=== PATIENT | female | born 1960 | race Caucasian/White ===

== ENCOUNTER 2020-03-31 15:26 | Emergency (ER) | payer OTHER, SELFPAY ==
--- NOTE | ~2020-03-31 | XR_ITS ---
EXAMINATION: XR foot LT min 3V DATE: 03/31/2020 16:10 INDICATION: Left foot pain. TECHNIQUE: 4 views of left foot were obtained. COMPARISON: None. FINDINGS: Bone alignment is normal. No fracture. There is mild osteoarthritis of first metatarsophala ngeal joint. There is an enthesophyte at posterior aspect of calcaneal tuberosity. IMPRESSION: 1. Mild osteoarthritis of first metatarsophalangeal joint. Reviewed, dictated and finalized at location B. [employer]
--- NOTE | ~2020-03-31 | XR_ITS ---
EXAMINATION: XR tibia fibula LT 2V DATE: 03/31/2020 16:10 INDICATION: Left lower leg injury and pain. TECHNIQUE: 2 views of left tibia and fibula on 4 radiographs were obtained. COMPARISON: None. FINDINGS: Bone alignment is normal. No fracture. Left knee demonstrates mild osteoarthritis of medial and lateral compartments and severe osteoarthritis of patellofemoral compartment. There is a small k nee joint effusion. There is pretibial soft tissue swelling. IMPRESSION: 1. Severe left knee osteoarthritis. 2. Small left knee joint effusion. Reviewed, dictated and finalized at location B. [facility]
[2020-03-31 15:41] VITALS: BP 116/69; PULSE 84; RESP 18; TEMP 37.1; O2SAT 100
--- NOTE | 2020-03-31 15:49 | ED.LOWEXIN ---
HPI - Extremity Injury (Lower) General Chief Complaint: Extremity Injury, Lower Stated Complaint: L/ankle pain Time Seen by Provider: 03/31/20 15:40 Source: patient Mode of arrival: ambulatory Limitations: no limitations History of Present Illness HPI Narrative: Kiana Murcia is a 60 yo morbidly obese female with a PMH of low back pain, weight loss attempt, who comes with fall on 1 step from kitchen to garage who landed on back with pain in L leg when trying to raise up from knees. No apparent abrasion of back or head although she states she hit her head on step also. using cane to help ambulate on L leg Patient states is in PT for loer back pain is unable to describe with exercise she is doing physical therapy. She denies any other medications such as pain medication, although she is slow in response cognitively. Related Data Home Medications Medication Instructions Recorded Confirmed cyclobenzaprine 10 mg PO TID PRN 03/31/20 03/31/20 meloxicam 7.5 mg PO DAILY 03/31/20 03/31/20 phentermine 37.5 mg PO DAILY 03/31/20 03/31/20 Allergies Allergy/AdvReac Type Severity Reaction Status Date / Time No Known Allergies Allergy Verified 03/31/20 15:47 Review of Systems Review of Systems: Narrative: CONSTITUTIONAL: Denies fever, chills, sweats. EYES: Denies visual changes, redness, discharge. ENT: Denies rhinorrhea, congestion, sore throat, otalgia. CARDIOVASCULAR: Denies chest pain, palpitations, edema. RESPIRATORY: Denies dyspnea, wheezing, cough GASTROINTESTINAL: Denies abdominal pain, nausea, vomiting, diarrhea. GENITOURINARY: Denies dysuria, hematuria, abnormal discharge SKIN: Denies rash or itching. States feeling back no apparent abrasion NEUROLOGIC: Denies numbness, or focal weakness. PSYCHIATRIC: Denies anxiety or depression. Left leg and foot pain and tightness PMFSH Past Medical History Medical History Low back pain Family History Family History Other No active medical problems Social History Social History (Updated 03/31/20 @ 16:29 by Daphney Irving CNP) Smoking packs per day: 0.75 Smoking cigarettes per day: 15.0 Smoking status: Current every day smoker Tobacco type: cigarettes Alcohol intake: never Living arrangements: with family Occupation/Education: other Comments At time of signature, I agree with nursing past medical, surgical, social and family history. There is no relevant family history pertinent to the presenting complaint. Exam Narrative: Exam Narrative: GENERAL: This is a well-nourished, well-developed patient, in moderate distress. HEAD: normocephalic, atraumatic. EYES: PERRL. Sclera clear/white. Vision is grossly intact. EARS: External ears normal, auditory canals clear and without drainage, TMs normal without perforation. Hearing grossly intact. NOSE: External nose normal without nasal discharge, nares without redness, no rhinorrhea. THROAT: Mucous membranes moist, NECK: Neck supple, non-tender CARDIOVASCULAR: Regular rate and rhythm without murmurs, gallops, or rubs. RESPIRATORY: Clear to auscultation. Breath sounds equal bilaterally. No wheezes, rales, or rhonchi. GASTROINTESTINAL: Abdomen soft, SKIN: warm, intact with no abrasion noted to back where she states she hit step; no abrasion noted to head NEURO: awake, alert, and oriented to person, place and time. There were no obvious focal neurologic abnormalities. Steady gait EXTREMITIES: Normal range of motion on R, L bent at knee, toe walking, states leg feels tight - using cane to ambulate- c/o general lower extremity tightness BACK: Nontender without deformity Course Course Emergency Course: Patient fell 1 step going into garage going back left lower leg, hit head X-rays of left lower extremity and foot- Xray results severe pruritus of the knee and arthritis of the metatarsophalangeal joint on the l
== END 2020-03-31 16:45 | disposition home or self-care (01) ==
PROVIDERS: Emergency Provider Nurse Practitioner; PCP Family Medicine
DX: S93.402A Sprain of unspecified ligament of left ankle, initial encounter (principal); S96.912A Strain of unspecified muscle and tendon at ankle and foot level, left foot, initial encounter; W10.9XXA Fall (on) (from) unspecified stairs and steps, initial encounter; M25.462 Effusion, left knee; F17.210 Nicotine dependence, cigarettes, uncomplicated; Z96.643 Presence of artificial hip joint, bilateral
CPT/HCPCS: 73590; 73630; 99204; G0463; L1830

== ENCOUNTER 2022-03-11 13:51 | Emergency (ER) | payer OTHER, SELFPAY ==
--- NOTE | ~2022-03-11 | XR_ITS ---
EXAMINATION: XR knee LT min 4V DATE: 03/11/2022 14:28 INDICATION: Left knee feels like giving out after palpable pop TECHNIQUE: Anteroposterior, oblique and crosstable lateral views of the left knee were obtained COMPARISON: None. FINDINGS: Alignment is normal. No fracture. Moderate joint space narrowing and prominent marginal osteophytes at the patellofemoral compartment. Small marginal osteophytes with relatively preserved joint spaces in the medial lateral compartment although joint space narrowing could be underestimated on nonweight bearing imaging. No joint effusion/layering lipohemarthrosis. Soft tissues are unremarkable. IMPRESSION: 1. Moderate patellofemoral compartment predominant tricompartmental osteoarthritis of the left knee. Reviewed, dictated and finalized at location A. IMPRESSION: 1. Moderate patellofemoral compartment predominant tricompartmental osteoarthri tis of the left knee.
[2022-03-11 14:01] VITALS: BP 154/66; PULSE 91; RESP 18; TEMP 37.3; O2SAT 96
--- NOTE | 2022-03-11 14:09 | ED.LOWEXIN ---
HPI - Extremity Injury (Lower) General Chief Complaint: Extremity Problem,Nontraumatic Stated Complaint: lt knee wants to give up Time Seen by Provider: 03/11/22 14:10 Source: patient Mode of arrival: ambulatory Limitations: no limitations History of Present Illness HPI Narrative: 62-year-old female presents with complaint the left knee feels unstable and is going to go out on her for 2 days. States that when she was lying in she turned over and twisted left knee and felt a pop. has had feeling of instability since then. No history of left knee pain No pain to left knee at this time. ambulatory while using cane. Is wearing a knee immobilizer but she brought from a retail store. Requesting an x-ray. All systems reviewed and negative except as noted above. Related Data Home Medications Medication Instructions Recorded Confirmed No Home Medications 03/11/22 03/11/22 Allergies Allergy/AdvReac Type Severity Reaction Status Date / Time No Known Allergies Allergy Verified 03/11/22 13:57 Review of Systems Review of Systems: CONSTITUTIONAL: Denies fever, chills, or sweats. EYES: Denies visual changes, redness, or discharge. ENT: Denies rhinorrhea, congestion, sore throat, or otalgia. CARDIOVASCULAR: Denies chest pain, palpitations, or edema. RESPIRATORY: Denies cough or dyspnea. GASTROINTESTINAL: Denies abdominal pain, nausea, vomiting, or diarrhea. GENITOURINARY: Denies dysuria or hematuria. SKIN: Denies rash or itching. MUSCULOSKELETAL: Denies back pain, joint pain, or myalgia. Reports left knee feels unstable. NEUROLOGIC: Denies headache, numbness, or weakness. PSYCHIATRIC: Denies anxiety or depression. All other systems reviewed are negative, except as documented in HPI. [facility] Past Medical History Medical History Low back pain Family History Family History Other No active medical problems Social History Social History (Updated 03/31/20 @ 16:29 by Daphney Irving, MANUEL) Smoking packs per day: 0.75 Smoking cigarettes per day: 15.0 Smoking status: Current every day smoker Tobacco type: cigarettes Alcohol intake: never Comments At time of signature, agree with nursing past medical, surgical, social and family history. There is no relevant family history pertinent to the presenting complaint. Exam Narrative: GENERAL: This is a well-nourished, well-developed patient, in no apparent distress. HEAD: normocephalic, atraumatic. EYES: PERRL. Sclera clear/white. Vision is grossly intact. EARS: External ears normal NOSE: External nose normal NECK: Neck supple, non-tender without lymphadenopathy, masses or thyromegaly. CARDIOVASCULAR: Regular rate and rhythm without murmurs, gallops, or rubs. RESPIRATORY: Clear to auscultation. Breath sounds equal bilaterally. No wheezes, rales, or rhonchi. SKIN: warm, Dry, intact with no suspicious lesions or rash, good texture and turgor. NEURO: awake, alert, and oriented to person, place and time. There were no obvious focal neurologic abnormalities. EXTREMITIES: No swelling noted to left knee. No skin abnormalities to left knee such as erythema or warmth. No instability noted, negative drawer testing. Tender on palpation of patella. Normal range of motion. Course Course Level of Care: Express Care Visit Vital Signs Vital signs: Vital Signs Temperature 37.3 C 03/11/22 14:01 Pulse Rate 91 03/11/22 14:01 Respiratory Rate 18 03/11/22 14:01 Blood Pressure 154/66 H 03/11/22 14:01 Pulse Oximetry 96 03/11/22 14:01 Oxygen Delivery Room Air 03/11/22 14:01 Temperature 37.3 C 03/11/22 14:01 Pulse Rate 91 03/11/22 14:01 Respiratory Rate 18 03/11/22 14:01 Blood Pressure 154/66 H 03/11/22 14:01 Pulse Oximetry 96 03/11/22 14:01 Oxygen Delivery Room Air 03/11/22 14:01 Reviewed MDM - Extremit
== END 2022-03-11 14:55 | disposition home or self-care (01) ==
PROVIDERS: Emergency Provider Nurse Practitioner Family; PCP Family Medicine
DX: M17.12 Unilateral primary osteoarthritis, left knee (principal); F17.210 Nicotine dependence, cigarettes, uncomplicated
CPT/HCPCS: 73564; 99213; G0463